=== PATIENT | female | born 1955 | race Caucasian/White ===

== ENCOUNTER 2016-10-05 16:59 | Inpatient (IN) | payer BC ==
[~2016-10-05] VITALS: Ht 154.9 cm; Wt 56.2 kg
[2016-10-05] MEDS ORDERED: SODIUM CHLORIDE FLUSH 10ML SYR IVF ONE (18:00)
[2016-10-05 18:13] LABS: ASPARTATE AMINO TRANSFERASE 23 U/L (15-37); BLOOD UREA NITROGEN 9 mg/dL (7-18)
[2016-10-05 18:19] LABS: IS PT STATUS REG ER OR PRE ER? YES
[2016-10-05 18:21] LABS: HEMOGLOBIN 8.5 g/dL (11.7-16.4)
[2016-10-05 18:22] LABS: DIFF TOTAL CELLS COUNTED 100 CELL DIFF
[2016-10-05] MEDS ORDERED: OMNIPAQUE 350 MG/ML, 100ML BOTTLE ONE (18:43)
[2016-10-05] MEDS ORDERED: LORazepam 2 MG/ML, 1ML IVPush ONE (19:00)
[2016-10-05] MEDS ORDERED: FUROSEMIDE 40 MG/4 ML IVPush ONE (19:00)
[2016-10-05] MEDS ORDERED: FUROSEMIDE 40 MG/4 ML ONE (19:07)
[2016-10-05] MEDS ORDERED: LORazepam 2 MG/ML, 1ML ONE (19:07)
[2016-10-05 19:52] LABS: VERIFY COUNTS? YES
[2016-10-05 19:59] LABS: ANISOCYTOSIS 1+; OVALOCYTES 1+; POLYCHROMASIA 1+
[2016-10-05] MEDS ORDERED: ACETAMINOPHEN 325 MG TABLET PO PRN (21:00)
[2016-10-05] MEDS ORDERED: LABETALOL 20 MG/4 ML IV PRN (21:00)
[2016-10-05] MEDS ORDERED: TRAZODONE 50MG TABLET PO PRN (21:00)
[2016-10-05] MEDS ORDERED: DOCUSATE 100 MG CAPSULE PO PRN (21:00)
[2016-10-05] MEDS ORDERED: NICOTINE GUM 2 MG BC PRN (21:00)
[2016-10-05 23:33] VITALS: BP 167/76
[2016-10-06] MEDS ORDERED: MAGNESIUM SULFATE PMX 4GM/100M 100 ML IV ONE (00:30)
[2016-10-06] MEDS: LORazepam 1MG TABLET PO PRN ×5 (01:46→22:02)
[2016-10-06] MEDS: LISINOPRIL 10 MG TABLET PO SCH ×2 (01:46→11:40)
[2016-10-06 01:49] VITALS: BP 176/75
[2016-10-06 05:05] LABS: BLOOD UREA NITROGEN 8 mg/dL (7-18)
[2016-10-06 05:06] LABS: HEMOGLOBIN 8.7 g/dL (11.7-16.4)
[2016-10-06 06:35] LABS: IS PT STATUS REG ER OR PRE ER? NO
[2016-10-06 10:12] VITALS: BP 178/81
[2016-10-06] MEDS: POTASSIUM CHLORIDE 20 MEQ TAB.ER.PRT PO SCH ×2 (11:37→17:48)
[2016-10-06] MEDS: FUROSEMIDE 40 MG/4 ML IV SCH (11:38)
[2016-10-06] MEDS: NICOTINE 7 MG/24 HR PATCH.TD24 TD SCH (11:39)
[2016-10-06] MEDS: SPIRONOLACTONE 50 MG TABLET PO SCH (15:19)
[2016-10-06 15:29] VITALS: BP 144/68
[2016-10-06] MEDS ORDERED: OMNIPAQUE 350 MG/ML, 100ML BOTTLE ONE (16:33)
[2016-10-06] MEDS: CARVEDILOL 6.25 MG TABLET PO SCH (17:48)
[2016-10-06 19:51] VITALS: BP 133/57
[2016-10-07 03:59] VITALS: BP 117/56
[2016-10-07 05:54] LABS: ASPARTATE AMINO TRANSFERASE 21 U/L (15-37); BLOOD UREA NITROGEN 7 mg/dL (7-18)
[2016-10-07 06:02] LABS: HEMOGLOBIN 7.3 g/dL (11.7-16.4)
[2016-10-07] MEDS: CARVEDILOL 6.25 MG TABLET PO SCH ×2 (06:10→17:01)
[2016-10-07 07:14] VITALS: BP 105/59
[2016-10-07] MEDS: SPIRONOLACTONE 50 MG TABLET PO SCH (08:02)
[2016-10-07] MEDS: LISINOPRIL 10 MG TABLET PO SCH (08:02)
[2016-10-07] MEDS: FUROSEMIDE 40 MG/4 ML IV SCH (08:02)
[2016-10-07] MEDS: POTASSIUM CHLORIDE 20 MEQ TAB.ER.PRT PO SCH ×2 (08:02→17:01)
[2016-10-07] MEDS: NICOTINE 7 MG/24 HR PATCH.TD24 TD SCH (08:04)
[2016-10-07 15:31] VITALS: BP 165/77
[2016-10-07 21:46] VITALS: BP 146/68
[2016-10-08 03:19] VITALS: BP 96/56
[2016-10-08 05:24] LABS: HEMOGLOBIN 7.5 g/dL (11.7-16.4)
[2016-10-08 05:57] LABS: ASPARTATE AMINO TRANSFERASE 19 U/L (15-37); BLOOD UREA NITROGEN 10 mg/dL (7-18)
[2016-10-08] MEDS: CARVEDILOL 6.25 MG TABLET PO SCH (05:59)
[2016-10-08 07:42] VITALS: BP 123/67
[2016-10-08] MEDS: POTASSIUM CHLORIDE 20 MEQ TAB.ER.PRT PO SCH (09:07)
[2016-10-08] MEDS: NICOTINE 7 MG/24 HR PATCH.TD24 TD SCH (09:08)
[2016-10-08] MEDS: SPIRONOLACTONE 50 MG TABLET PO SCH (09:08)
[2016-10-08] MEDS: LISINOPRIL 10 MG TABLET PO SCH (09:08)
[2016-10-08] MEDS: FUROSEMIDE 40 MG/4 ML IV SCH (09:08)
[2016-10-08] MEDS ORDERED: CARV6.2512 PO (09:52)
[2016-10-08] MEDS ORDERED: LISI-167 PO (09:52)
[2016-10-08] MEDS ORDERED: SPIR50TA PO (09:52)
[2016-10-08] MEDS ORDERED: DOCU-30 PO (09:52)
[2016-10-08] MEDS ORDERED: METH10TA6 PO (09:52)
[2016-10-08] MEDS ORDERED: FURO20TA3 PO (09:52)
[2016-10-08] MEDS ORDERED: POTA20TA6 PO (09:52)
[2016-10-08] MEDS ORDERED: PNEUMOCOCCAL 23 VACCINE IM-VACC ONE (14:00)
== END 2016-10-08 14:02 | disposition home or self-care (01) | DRG 291 ==
LOC: ED 17:31 → EDIP 19:54 → 5SO 10-06 00:02 → DCLOUNGE 10-08 13:05
PROVIDERS: ADMIT Internal Medicine; ATTEND Internal Medicine
DX: I50.33 Acute on chronic diastolic (congestive) heart failure (principal); E43 Unspecified severe protein-calorie malnutrition; D61.818 Other pancytopenia; F41.9 Anxiety disorder, unspecified; E05.90 Thyrotoxicosis, unspecified without thyrotoxic crisis or storm; E83.42 Hypomagnesemia; K72.90 Hepatic failure, unspecified without coma; I27.2 Other secondary pulmonary hypertension; F17.210 Nicotine dependence, cigarettes, uncomplicated; I34.0 Nonrheumatic mitral (valve) insufficiency; I07.1 Rheumatic tricuspid insufficiency; E03.9 Hypothyroidism, unspecified; E87.6 Hypokalemia; F10.21 Alcohol dependence, in remission; R16.1 Splenomegaly, not elsewhere classified; Z68.23 Body mass index [BMI] 23.0-23.9, adult; Z90.49 Acquired absence of other specified parts of digestive tract; Z80.3 Family history of malignant neoplasm of breast; Z71.6 Tobacco abuse counseling; Z23 Encounter for immunization
CPT/HCPCS: 36415; 71010; 71275; 74178; 76536; 76700; 80048; 80053; 80061; 82607; 82728; 82746; 82977; 83010; 83036; 83540; 83550; 83615; 83690; 83735; 83880; 84439; 84443; 84484; 85025; 85045; 85379; 85610; 85730; 90732; 93005; 93306; 93970; 96374; 96375; J1940; Q9967; J2060; J3475